=== PATIENT | male | born 1990 | race Caucasian/White ===

== ENCOUNTER 2018-11-14 00:35 | Emergency (ER) | payer MEDICAID ==
[~2018-11-14] VITALS: Ht 170.2 cm; Wt 95.3 kg
[2018-11-14 00:39] VITALS: BP 148/86
--- NOTE | 2018-11-14 01:23 | NUR ---
CALLED FOR PATIENT IN THE LOBBY/OUTSIDE, NO ANSWER. PEOPLE IN THE LOBBY STATED "A LADY CAME IN AND WALKED HIM OUT."
[2018-11-14 01:43] VITALS: BP 148/86
--- NOTE | 2018-11-14 01:43 | NUR ---
PATIENT LEFT WITHOUT BEING SEEN BY DR. AWAD. NO FURTHER CARE PROVIDED FOR PATIENT.
--- NOTE | 2018-11-14 01:43 | NUR ---
CALLED PT FROM THE LOBBY, NO RESPONSE, LWBS
== END 2018-11-14 01:43 | disposition left against medical advice (07) ==
LOC: MED 00:35
DX: E86.0 Dehydration (principal); R53.1 Weakness; Z53.21 Procedure and treatment not carried out due to patient leaving prior to being seen by health care provider